=== PATIENT | female | born 1990 | race Caucasian/White ===

== ENCOUNTER → 2018-01-16 | Outpatient (CLI) | payer OTHER | LOC: COL.VAS 10:08 | DX: R22.41 Localized swelling, mass and lump, right lower limb (principal) ==

== ENCOUNTER 2018-02-05 06:47 | Inpatient (IN) | payer OTHER ==
[~2018-02-05] VITALS: Ht 172.7 cm; Wt 82.3 kg
[2018-02-05] VITALS (44 sets, daily range): BP systolic 108–156; BP diastolic 53–92; PULSE 75–120; TEMP 97.5–98.8
[2018-02-05] MEDS ORDERED: PRENATAL (06:54)
[2018-02-05] MEDS ORDERED: OSCAL 500 TAB500 MG PO (07:38)
[2018-02-05 08:24] LABS: BASO % 0.2 % (0.0-2.0); EOS % 0.7 % (0-4.0); GRAN # 4.3 (1.4-6.5); GRAN % 71.6 % (42.2-75.2); HEMOGLOBIN 11.9 g/dl (12.5-16.0); LYMPH % 17.2 % (20.0-51.0); MEAN CELL VOLUME 85 fl (80.0-100.0); MEAN CORPUSCULAR HEMOGLOBIN 30 pg (27.0-31.0); MEAN CORPUSCULAR HGB CONC 35 g/dl (33.0-37.0); MONO # 0.6 (0.1-0.6); MONO % 9.8 % (1.7-9.3); PLATELET COUNT 100 K/mm3 (130-400); RED BLOOD COUNT 4.04 M/mm3 (4.10-5.30); REDCELL DISTRIBUTION WIDTH-CV 13.1 % (11.5-14.5)
[2018-02-05 08:29] LABS: HEMATOCRIT 34.4 % (37.0-47.0)
[2018-02-06 00:45] VITALS: BP 128/79; PULSE 107
[2018-02-06 05:00] VITALS: BP 110/66; PULSE 117
[2018-02-06 07:40] VITALS: BP 110/61; PULSE 104; TEMP 97.7
[2018-02-06] MEDS ORDERED: MOTRIN 800800 MG/TAB PO (08:31)
[2018-02-06] MEDS ORDERED: PERCOCET 325 MG1 TA2 PO (08:31)
[2018-02-06 16:45] VITALS: BP 127/74; PULSE 102; TEMP 98
[2018-02-06 21:30] VITALS: BP 129/67; PULSE 112; TEMP 97.5
[2018-02-07 07:10] VITALS: BP 119/76; PULSE 86; TEMP 97.6
== END 2018-02-07 16:15 | disposition home or self-care (01) | DRG 775 ==
LOC: LDR 06:47 → OB 07:16
PROVIDERS: Obstetrics & Gynecology
PROC: 10E0XZZ Delivery of Products of Conception, External Approach (ICD-10-PCS; principal; 2018-02-05)
PROC: 3E033VJ Introduction of Other Hormone into Peripheral Vein, Percutaneous Approach (ICD-10-PCS; 2018-02-05)
PROC: 10907ZC Drainage of Amniotic Fluid, Therapeutic from Products of Conception, Via Natural or Artificial Opening (ICD-10-PCS; 2018-02-05)
PROC: 0HQ9XZZ Repair Perineum Skin, External Approach (ICD-10-PCS; 2018-02-05)
PROC: 0UQGXZZ Repair Vagina, External Approach (ICD-10-PCS; 2018-02-05)
DX: O70.0 First degree perineal laceration during delivery (principal); O99.12 Other diseases of the blood and blood-forming organs and certain disorders involving the immune mechanism complicating childbirth; Z3A.39 39 weeks gestation of pregnancy; Z37.0 Single live birth; O62.2 Other uterine inertia; D69.6 Thrombocytopenia, unspecified
CPT/HCPCS: J2210; J2590; J7120

== ENCOUNTER 2020-12-31 13:14 | Inpatient (IN) | payer OTHER ==
[~2020-12-31] VITALS: Ht 172.7 cm; Wt 82.3 kg
[~2020-12-31 13:14] MED LIST: MOTRIN 800800 MG/TAB PO; OSCAL 500 TAB500 MG PO; PERCOCET 325 MG1 TA2 PO; PRENATAL
[2021-01-03] VITALS (19 sets, daily range): BP systolic 100–146; BP diastolic 55–83; PULSE 63–93; TEMP 98–98.6
[2021-01-03 07:21] LABS: BASO % 0.2 % (0.0-2.0); EOS # 0.1 (0.0-0.7); EOS % 0.8 % (0-4.0); GRAN # 4.2 (1.4-6.5); GRAN % 70.7 % (42.2-75.2); HEMOGLOBIN 12.5 g/dl (12.5-16.0); LYMPH # 1.1 (1.2-3.4); LYMPH % 18.1 % (20.0-51.0); MEAN CELL VOLUME 89 fl (80.0-100.0); MEAN CORPUSCULAR HEMOGLOBIN 30 pg (27.0-31.0); MEAN CORPUSCULAR HGB CONC 34 g/dl (33.0-37.0); MEAN PLATELET VOLUME 10.5 fl (7.4-10.4); MONO # 0.6 (0.1-0.6); MONO % 9.9 % (1.7-9.3); PLATELET COUNT 111 K/mm3 (130-400); RED BLOOD COUNT 4.12 M/mm3 (4.10-5.30); REDCELL DISTRIBUTION WIDTH-CV 13.3 % (11.5-14.5)
[2021-01-03 07:24] LABS: HEMATOCRIT 36.7 % (37.0-47.0)
[2021-01-04 00:56] VITALS: BP 110/66; PULSE 70; TEMP 98
[2021-01-04 04:44] VITALS: BP 112/63; PULSE 74; TEMP 98.5
[2021-01-04] MEDS ORDERED: MOTRIN 800800 MG/TAB PO (07:42)
[2021-01-04] MEDS ORDERED: PERCOCET 325 MG1 TA2 PO (07:43)
[2021-01-04 08:02] VITALS: BP 118/68; PULSE 86; TEMP 98.4
[2021-01-04 16:30] VITALS: BP 117/70; PULSE 74; TEMP 98.4
[2021-01-04 19:35] VITALS: BP 110/66; PULSE 79; TEMP 97.8
[2021-01-05 06:57] VITALS: BP 111/86; PULSE 91; TEMP 98.3
== END 2021-01-05 12:45 | disposition home or self-care (01) | DRG 806 ==
LOC: LDRO 13:14 → EDSTATUS 16:25 → OB 01-03 06:20 → LDR 01-03 06:20 → OB 01-03 12:40 → LDR 01-03 16:27 → OB 01-05 12:45
PROVIDERS: ADMIT Obstetrics & Gynecology
PROC: 10E0XZZ Delivery of Products of Conception, External Approach (ICD-10-PCS; principal; 2021-01-03)
PROC: 10907ZC Drainage of Amniotic Fluid, Therapeutic from Products of Conception, Via Natural or Artificial Opening (ICD-10-PCS; 2021-01-03)
PROC: 0UQMXZZ Repair Vulva, External Approach (ICD-10-PCS; 2021-01-03)
DX: O48.0 Post-term pregnancy (principal); O99.12 Other diseases of the blood and blood-forming organs and certain disorders involving the immune mechanism complicating childbirth; Z37.0 Single live birth; Z3A.40 40 weeks gestation of pregnancy; D69.6 Thrombocytopenia, unspecified; O70.0 First degree perineal laceration during delivery
CPT/HCPCS: J2590; J7120

== ENCOUNTER 2024-03-25 06:22 | Inpatient (IN) | payer OTHER ==
[~2024-03-25] VITALS: Ht 175.3 cm; Wt 83.6 kg
[2024-03-25] VITALS (27 sets, daily range): BP systolic 102–182; BP diastolic 7–138; PULSE 16–100; TEMP 97.7–98
--- NOTE | 2024-03-25 06:30 | NUR ---
PT AMBULATORY TO LR5 FOR AN IOL WITH SPOUSE CHARLES AT HER SIDE. PT CHANGED INTO CLEAN GOWN AND VOIDED. PT TO LABOR BED, PLACED ON EFM. SVE 3/70/-3. 18G IV STARTED TO THE LEFT FOREARM, LABS OBTAINED WITH IV START AND SENT TO LAB. IV FLUIDS STARTED AND PLAN OF CARE DISCUSSED. ADMISSION CONSENTS SIGNED AND PATIENT EXPRESSED WRITTEN AND VERBAL UNDERSTANDING. PT DENIES LOF, VB AND HAS HAD GOOD MOVEMENT. NOTIFIED PHYSICIAN. NO OTHER CONCERNS AT THIS TIME.
[2024-03-25] MEDS ORDERED: LR 1,000 ML IV SCH (07:15)
[2024-03-25] MEDS ORDERED: LR & Oxytocin 500 ML IV SCH (07:15)
[2024-03-25 07:44] LABS: BASO % 0.2 % (0.0-2.0); EOS % 0.5 % (0.0-4.0); GRAN # 4.3 K/mm3 (1.4-6.5); GRAN % 70.2 % (42.2-75.2); HEMATOCRIT 39.1 % (37.0-47.0); HEMOGLOBIN 13.2 g/dl (12.5-16.0); LYMPH # 1.3 K/mm3 (1.2-3.4); LYMPH % 20.5 % (20.0-51.0); MEAN CELL VOLUME 91 fl (80.0-100.0); MEAN CORPUSCULAR HEMOGLOBIN 31 pg (27-31); MEAN CORPUSCULAR HGB CONC 34 g/dl (33.0-37.0); MEAN PLATELET VOLUME 10.4 fl (7.4-10.4); MONO # 0.5 K/mm3 (0.1-0.6); MONO % 8.3 % (1.7-9.3); PLATELET COUNT 110 K/mm3 (130-400); RED BLOOD COUNT 4.32 M/mm3 (4.10-5.30); REDCELL DISTRIBUTION WIDTH-CV 12.5 % (11.5-14.5)
[2024-03-25] MEDS ORDERED: NATURAL MAGNES200 MG PO (07:54)
[2024-03-25] MEDS ORDERED: NATURAL IRON65 MG PO (07:55)
[2024-03-25] MEDS ORDERED: ROPivacaine PF 0.2% 200 ML IV ONE (08:56)
[2024-03-25] MEDS ORDERED: ePHEDrine 50 MG/10 ML VIAL IV PRN (09:30)
[2024-03-25] MEDS ORDERED: Ondansetron 4 MG/2 ML VIAL IV PRN (09:30)
[2024-03-25] MEDS ORDERED: diphenhydrAMINE 50 MG/ML 1 ML VIAL IV PRN (09:30)
[2024-03-25] MEDS ORDERED: diphenhydrAMINE 25 MG CAP PO PRN (09:30)
[2024-03-25] MEDS ORDERED: Naloxone 0.4 MG/ML VIAL IV PRN ×2 (09:30→12:45)
--- NOTE | 2024-03-25 12:18 | NUR ---
1140: SVE COMPLETE/+2 1144: NOTIFIED PHYSICIAN; PREPPED PATIENT FOR DELIVERY. 1156: ARRIVED GOWNS AND GLOVES. BED BROKE DOWN AND PATIENT PLACED IN FOOTPLATES FOR DELIVERY. 1200: PT BEGINS PUSHING WITH X1 CONTRACTION. OF VIABLE MALE PER . WAS STIMULATED BY AND CORD CLAMPING WAS DELAYED, CORD CLAMPED X2 AND FOB CUT THE CORD. PLACED UP ON MATERNAL CHEST AND CARE OF WAS ASSUMED BY MARTIN GARZON. PITOCIN STOPPED AT THIS TIME. 1203: OF INTACT PLACENTA. ASSESSMENT OF LACERATION PER . RIGHT LABIAL LACERATION- EXTERNAL AND INTERNAL. REPAIR BEGINS PER . 1215: REPAIR COMPLETE, ASSESSMENT OF UTERINE TONE PER . FUNDUS FIRM, LOCHIA WNL. QBL FROM DELIVERY 137. 1218: PT REPOSITIONED WITH PERIPAD AND ICEPACK TO THE PERINEUM. PT DENIES ANY NEEDS AT THIS TIME. WILL BEGIN POST RECOVERY AT 1215.
[2024-03-25] MEDS ORDERED: Magnes Hydrox (MOM) 80 MG/ML 30 ML CUP PO PRN (12:30)
[2024-03-25] MEDS ORDERED: Loratadine 10 MG TAB PO PRN (12:30)
[2024-03-25] MEDS ORDERED: oxyCODONE 5 MG TAB PO PRN (12:45)
[2024-03-25] MEDS ORDERED: Phenylephrine/Mineral Oil/Petrolatum 57 GM TUBE RC PRN (12:45)
[2024-03-25] MEDS ORDERED: Ibuprofen 800 MG TAB PO SCH (12:45)
[2024-03-25] MEDS ORDERED: Acetaminophen 500 MG TAB PO SCH (12:45)
[2024-03-25] MEDS ORDERED: Witch Hazel 50% Pads Bulk TUB TP PRN (12:45)
[2024-03-25] MEDS ORDERED: Measles/Mumps/Rubella Virus Vaccine Live w Diluent 0.5 ML VIAL SQ SCH (12:45)
[2024-03-25] MEDS ORDERED: Mag/Al Hydrox/Simeth Susp 30 ML CUP PO PRN (12:45)
--- NOTE | 2024-03-25 14:45 | NUR ---
PT UP BY MAIASTRITA TO THE BATHROOM. PT UNABLE TO VOID AT THIS TIME. LARGE AMOUNT OF LOCHIA IN THE BATHROOM, INCLUDING CLOTS. PERFORMED PERICARE AND EDUCATED PT REGARDING PATTING DRY AND NOT WIPING D/T HER REPAIR. PT FELT OVERHEATED, CHANGED PATIENT INTO A CLEAN NURSING GOWN, PUT ON MESH PANTIES WITH ICE PACK AND PERIPAD. [facility]. PT STATES SHE FELT MUCH BETTER AFTER ARRIVING TO HER PP ROOM. FUNDAL MASSAGE PERFORMED. FUNDUS IS FIRM AND LOCHIA IS WNL AT THIS TIME. PHYSICIAN NOTIFIED OF RECOVERY QBL. SEE PHYSICIAN NOTIFICATION.
[2024-03-25] MEDS ORDERED: Sennosides/Docusate 8.6-50 MG TAB PO SCH (17:00)
[2024-03-25] MEDS ORDERED: traZODone 50 MG TAB PO PRN (21:00)
[2024-03-26 01:12] VITALS: BP 126/70; PULSE 78; TEMP 98
[2024-03-26 04:00] VITALS: BP 118/70; PULSE 78; TEMP 97.8
[2024-03-26 08:15] VITALS: BP 109/61; PULSE 83; TEMP 97.8
--- NOTE | 2024-03-26 09:57 | NUR ---
Initial visit; Patient and her thanked Outsole Cementer for looking in on them and offering congratulations and God's blessings for the of their son. Outsole Cementer thanked them for choosing [facility] for which they expressed their positive experience while giving to their son here.
[2024-03-26 16:47] VITALS: BP 126/68; PULSE 89; TEMP 98.2
[2024-03-26 20:30] VITALS: BP 118/53; PULSE 77; TEMP 97.7
[2024-03-27 08:30] VITALS: BP 126/69; PULSE 66; TEMP 97.9
== END 2024-03-27 10:10 | disposition home or self-care (01) | DRG 806 ==
LOC: LDR 06:22 → OB 06:22
PROVIDERS: ADMIT Obstetrics & Gynecology
PROC: 10E0XZZ Delivery of Products of Conception, External Approach (ICD-10-PCS; principal; 2024-03-25)
PROC: 0HQ9XZZ Repair Perineum Skin, External Approach (ICD-10-PCS; 2024-03-25)
PROC: 3E033VJ Introduction of Other Hormone into Peripheral Vein, Percutaneous Approach (ICD-10-PCS; 2024-03-25)
PROC: 10907ZC Drainage of Amniotic Fluid, Therapeutic from Products of Conception, Via Natural or Artificial Opening (ICD-10-PCS; 2024-03-25)
DX: O48.0 Post-term pregnancy (principal); O99.12 Other diseases of the blood and blood-forming organs and certain disorders involving the immune mechanism complicating childbirth; Z37.0 Single live birth; Z3A.40 40 weeks gestation of pregnancy; O69.81X0 Labor and delivery complicated by cord around neck, without compression, not applicable or unspecified; O70.0 First degree perineal laceration during delivery; D69.59 Other secondary thrombocytopenia
CPT/HCPCS: J2590; J2795; J7120